=== PATIENT | female | born 2000 | race Caucasian/White ===

== ENCOUNTER → 2021-09-12 12:48 | Outpatient (CLI) | payer BC, SELFPAY ==
[2021-09-12 13:55] LABS: COVID19 -Nasal RAPID POSITIVE (Negative)
== END ==
PROVIDERS: PCP Internal Medicine; Visit Provider Nurse Practitioner Family
DX: R05.9 Cough, unspecified (principal); J02.9 Acute pharyngitis, unspecified
CPT/HCPCS: 87635